=== PATIENT | male | born 1985 | race African-American/Black ===

== ENCOUNTER 2017-08-31 03:00 | Emergency (ER) | payer SELFPAY ==
[2017-08-31 03:57] LABS: #Basophils 0.1 thou/uL (0.0-0.2); #Eosinphils 0.2 thou/uL (0.0-0.7); #Lymphocytes 2.7 thou/uL (1.20-3.40); #Monocytes 0.7 thou/uL (0.11-0.59); #Neutrophils 4.7 thou/uL (1.40-6.50); %Basophils 1.1 % (0.0-1.0); %Eosinophils 2.1 % (0.0-10.0); %Lymphocytes 32.3 % (21.0-51.0); %Monocytes 8.1 % (0.0-10.0); Hematocrit 42.5 % (42.0-52.0); Mean Platelet Volume 8.1 fL (7.4-10.4); Red Blood Cell (RBC) Count 4.78 mill/uL (4.70-6.10); White Blood Cell (WBC) Count 8.3 thou/uL (4.8-10.8)
[2017-08-31 04:15] LABS: ALT (SGPT) 12 U/L (8-55); AST (SGOT) 13 U/L (5-34); Alkaline Phosphatase 68 U/L (40-150); Anion Gap 10 mmol/L (10-20); BUN (Urea Nitrogen) 13 mg/dL (8.9-20.6); Bilirubin, Total 0.4 mg/dL (0.2-1.2); Calc. Creatinine Clearance 0 mL/min (70-130); Carbon Dioxide 25 mmol/L (22-29); Chloride 109 mmol/L (98-107); Estimated GFR-MDRD Greater than 90; Globulin 2.7 g/dL (2.4-3.5); Protein, Total 6.7 g/dL (6.0-8.3)
[2017-08-31 04:16] LABS: Acetaminophen Less than 6.0 mcg/mL (10.0-30.0); CK (CPK) 129 U/L (30-200); Salicylate Less than 8.0 mg/dL (15.0-30.0)
[2017-08-31 05:08] LABS: Bilirubin Negative (Negative); Blood, Urine Negative (Negative); Glucose, Urine (Dipstick) Negative (Negative); Ketone, Urine Negative (Negative); Nitrite Negative (Negative); Protein, Urine (Dipstick) Negative (Neg-Trace)
[2017-08-31 05:32] LABS: Amphetamine Not Detected (NotDetected); Methadone Not Detected (NotDetected); Methamphetamine Not Detected (NotDetected)
[2017-09-06] MEDS ORDERED: Clotrimazole 1 % Cream 30 GM TUBE TOP SCH (09:00)
== END 2017-09-05 23:00 ==
LOC: ERS 03:00
DX: F20.9 Schizophrenia, unspecified (principal); F16.10 Hallucinogen abuse, uncomplicated; F17.210 Nicotine dependence, cigarettes, uncomplicated
CPT/HCPCS: 36415; 80053; 80306; 80307; 81003; 82550; 84443; 85025; 93005

== ENCOUNTER 2017-10-24 19:10 | Emergency (ER) | payer SELFPAY ==
[2017-10-24 20:33] LABS: Bilirubin Negative (Negative); Blood, Urine Negative (Negative); Glucose, Urine (Dipstick) Negative (Negative); Ketone, Urine Trace mg/dL (Negative); Nitrite Negative (Negative); Protein, Urine (Dipstick) Negative (Neg-Trace)
[2017-10-24] MEDS ORDERED: Azithromycin 250 MG TAB ONE (21:41)
[2017-10-24] MEDS ORDERED: cefTRIAXone\\ROCEPHIN 250 MG VIAL ONE (21:41)
[2017-10-24] MEDS ORDERED: Lidocaine 1% PF 5 ML VIAL ONE (21:41)
== END 2017-10-24 21:39 | disposition home or self-care (01) ==
LOC: ERS 19:10
DX: N34.1 Nonspecific urethritis (principal); F32.9 Major depressive disorder, single episode, unspecified; F20.9 Schizophrenia, unspecified; F17.210 Nicotine dependence, cigarettes, uncomplicated; Z79.899 Other long term (current) drug therapy
CPT/HCPCS: 81003; 87491; 87591; 96372; J0696; J2001

== ENCOUNTER 2017-12-08 19:23 | Emergency (ER) | payer SELFPAY ==
[2017-12-08 20:20] LABS: Bilirubin Negative (Negative); Blood, Urine Negative (Negative); Clarity CLEAR (Clear); Glucose, Urine (Dipstick) Negative (Negative); Leukocyte Negative (Negative); Nitrite Negative (Negative); Protein, Urine (Dipstick) Negative (Neg-Trace); Specific Gravity, Urine 1.027 (1.002-1.036)
[2017-12-08] MEDS ORDERED: cefTRIAXone\\ROCEPHIN 250 MG VIAL ONE (20:57)
[2017-12-08] MEDS ORDERED: Lidocaine 1% PF 5 ML VIAL ONE (20:57)
[2017-12-08] MEDS ORDERED: Azithromycin 250 MG TAB ONE (20:57)
== END 2017-12-08 21:25 | disposition home or self-care (01) ==
LOC: ERS 19:23
DX: N34.2 Other urethritis (principal); F32.9 Major depressive disorder, single episode, unspecified; F20.9 Schizophrenia, unspecified; F17.210 Nicotine dependence, cigarettes, uncomplicated
CPT/HCPCS: 81003; 96372; J0696; J2001

== ENCOUNTER 2018-02-09 00:42 | Emergency (ER) | payer SELFPAY ==
[2018-02-09 01:25] LABS: Bilirubin Negative (Negative); Blood, Urine Negative (Negative); Clarity CLEAR (Clear); Glucose, Urine (Dipstick) Negative (Negative); Leukocyte Negative (Negative); Nitrite Negative (Negative); Protein, Urine (Dipstick) Negative (Neg-Trace); Specific Gravity, Urine 1.025 (1.002-1.036); pH, Urine 6.5 (5.0-9.0)
== END 2018-02-09 02:00 | disposition home or self-care (01) ==
LOC: ERS 00:42
DX: N48.89 Other specified disorders of penis (principal); F32.9 Major depressive disorder, single episode, unspecified; F20.9 Schizophrenia, unspecified; F17.210 Nicotine dependence, cigarettes, uncomplicated
CPT/HCPCS: 81003; 99283

== ENCOUNTER 2018-04-17 23:13 | Emergency (ER) | payer SELFPAY ==
[2018-04-17 23:34] LABS: Bilirubin Negative (Negative); Blood, Urine Negative (Negative); Clarity CLEAR (Clear); Glucose, Urine (Dipstick) Negative (Negative); Leukocyte Negative (Negative); Nitrite Negative (Negative); Protein, Urine (Dipstick) Negative (Neg-Trace)
[2018-04-17] MEDS ORDERED: Azithromycin 250 MG TAB ONE (23:51)
[2018-04-17] MEDS ORDERED: Lidocaine 1% PF 5 ML VIAL ONE (23:51)
[2018-04-17] MEDS ORDERED: cefTRIAXone\\ROCEPHIN 250 MG VIAL ONE (23:51)
[2018-04-20 12:26] LABS: Chlamydia by PCR Not Detected (NotDetected); GC by PCR Not Detected (NotDetected)
== END 2018-04-18 00:17 | disposition home or self-care (01) ==
LOC: ERS 23:13
DX: R30.0 Dysuria (principal); Z11.3 Encounter for screening for infections with a predominantly sexual mode of transmission; F32.9 Major depressive disorder, single episode, unspecified; F20.9 Schizophrenia, unspecified; F17.210 Nicotine dependence, cigarettes, uncomplicated
CPT/HCPCS: 81003; 87491; 87591; 96372; J0696; J2001

== ENCOUNTER 2018-05-21 02:35 | Emergency (ER) | payer SELFPAY ==
[2018-05-21 03:28] LABS: #Basophils 0.1 thou/uL (0.0-0.2); #Eosinphils 0.1 thou/uL (0.0-0.7); #Lymphocytes 2.8 thou/uL (1.20-3.40); #Monocytes 0.7 thou/uL (0.11-0.59); #Neutrophils 6.1 thou/uL (1.40-6.50); %Basophils 0.8 % (0.0-1.0); %Lymphocytes 28.4 % (21.0-51.0); %Monocytes 7.6 % (0.0-10.0); %Neutrophils 62.2 % (42.0-75.0); Hemoglobin 14.2 g/dL (14.0-18.0); Mean Corpuscular HGB CONC 32.4 g/dL (32.0-36.0); Mean Corpuscular Hemoglobin 27.9 pg (27.0-31.0); Mean Platelet Volume 8.1 fL (7.4-10.4); Platelet Count 180 thou/uL (130-400); RBC Distribution Width 12.4 % (11.5-14.5); Red Blood Cell (RBC) Count 5.09 mill/uL (4.70-6.10); White Blood Cell (WBC) Count 9.8 thou/uL (4.8-10.8)
[2018-05-21] MEDS ORDERED: Ketorolac Tromethamine 30 MG/ML VIAL ONE (03:37)
[2018-05-21 03:42] LABS: CKMB 0.3 ng/mL (0-6.6); Troponin I Less than 0.010 ng/mL (< 0.028)
[2018-05-21 04:05] LABS: Albumin 4.5 g/dL (3.5-5.0)
[2018-05-21 04:06] LABS: Chloride 108 mmol/L (98-107); Sodium 139 mmol/L (136-145)
[2018-05-21 04:07] LABS: Calcium 9.3 mg/dL (7.8-10.44); Glucose 106 mg/dL (70-105)
[2018-05-21 04:08] LABS: Globulin 2.4 g/dL (2.4-3.5); Protein, Total 6.9 g/dL (6.0-8.3)
[2018-05-21 04:09] LABS: Anion Gap 12 mmol/L (10-20); Bilirubin, Total 0.5 mg/dL (0.2-1.2); Carbon Dioxide 23 mmol/L (22-29)
[2018-05-21 04:10] LABS: Alkaline Phosphatase 54 U/L (40-150)
[2018-05-21 04:11] LABS: Calc. Creatinine Clearance 0 mL/min (70-130); Estimated GFR-MDRD Greater than 90
[2018-05-21 04:12] LABS: BUN (Urea Nitrogen) 13 mg/dL (8.9-20.6)
[2018-05-21 04:13] LABS: ALT (SGPT) 17 U/L (8-55); AST (SGOT) 13 U/L (5-34)
[2018-05-21] MEDS ORDERED: Mag-Al 1200 mg/1200 mg/30 ML UDCUP ONE (04:18)
[2018-05-21] MEDS ORDERED: Lidocaine Viscous Sol 2% 15 ml UD Cup ONE (04:18)
[2018-05-21 05:09] LABS: Bilirubin Negative (Negative); Blood, Urine Negative (Negative); Clarity CLEAR (Clear); Glucose, Urine (Dipstick) Negative (Negative); Leukocyte Negative (Negative); Nitrite Negative (Negative); Protein, Urine (Dipstick) Trace mg/dL (Neg-Trace); Specific Gravity, Urine 1.035 (1.002-1.036)
[2018-05-21 05:19] LABS: Amphetamine Not Detected (NotDetected); Barbiturates Screen Not Detected (NotDetected); Benzodiazepine Screen Not Detected (NotDetected); Cocaine Metabolite Screen Not Detected (NotDetected); Medtox Control Line Valid? VALID (VALID); Medtox Reader # READER 1; Methadone Not Detected (NotDetected); Methamphetamine Not Detected (NotDetected); Opiate Screen Not Detected (NotDetected); Oxycodone Screen Not Detected (NotDetected); Phencyclidine (PCP) Detected (NotDetected); THC/Cannabinoid Screen Not Detected (NotDetected); Tricyclic Screen Not Detected (NotDetected)
== END 2018-05-21 05:47 | disposition home or self-care (01) ==
LOC: ERS 02:35
DX: R07.89 Other chest pain (principal); F32.9 Major depressive disorder, single episode, unspecified; F20.9 Schizophrenia, unspecified; F17.210 Nicotine dependence, cigarettes, uncomplicated
CPT/HCPCS: 36415; 80053; 80306; 81003; 82553; 84484; 85025; 87086; 93005; 96361; 96374; J1885

== ENCOUNTER 2018-06-22 03:02 | Emergency (ER) | payer SELFPAY | END 2018-06-22 05:36 | disposition home or self-care (01) | LOC: ERS 03:02 | DX: N48.89 Other specified disorders of penis (principal); F17.210 Nicotine dependence, cigarettes, uncomplicated; F32.9 Major depressive disorder, single episode, unspecified | CPT/HCPCS: 99283 ==

== ENCOUNTER 2019-03-12 22:09 | Emergency (ER) | payer SELFPAY ==
[2019-03-12] MEDS ORDERED: Ibuprofen 800 MG TAB ONE (22:49)
[2019-03-12 22:50] LABS: Bilirubin Negative (Negative); Blood, Urine Trace (Negative); Clarity CLEAR (Clear); Glucose, Urine (Dipstick) Negative (Negative); Leukocyte Negative (Negative); Nitrite Negative (Negative); Protein, Urine (Dipstick) Negative (Neg-Trace); Urobilinogen 0.2 mg/dL (0.2-1.0); pH, Urine 5.5 (5.0-9.0)
[2019-03-12 22:53] LABS: Bacteria/HPF None Seen HPF (None Seen); Hyaline Casts/LPF 0-3 HYALINE CAST LPF (0-3 Hyaline); RBC/HPF 0-3 HPF (0-3); Squamous Epithelial None Seen HPF (0-3); WBC/HPF 0-3 HPF (0-3)
[2019-03-12 22:59] LABS: Amphetamine Not Detected (NotDetected); Barbiturates Screen Not Detected (NotDetected); Benzodiazepine Screen Not Detected (NotDetected); Cocaine Metabolite Screen Not Detected (NotDetected); Medtox Control Line Valid? VALID (VALID); Medtox Reader # READER 4; Methadone Not Detected (NotDetected); Methamphetamine Not Detected (NotDetected); Opiate Screen Detected (NotDetected); Oxycodone Screen Not Detected (NotDetected); Phencyclidine (PCP) Detected (NotDetected); THC/Cannabinoid Screen Not Detected (NotDetected); Tricyclic Screen Not Detected (NotDetected)
== END 2019-03-12 22:55 | disposition home or self-care (01) ==
LOC: ERS 22:09
DX: M54.9 Dorsalgia, unspecified (principal); F32.9 Major depressive disorder, single episode, unspecified; F20.9 Schizophrenia, unspecified; F17.210 Nicotine dependence, cigarettes, uncomplicated
CPT/HCPCS: 80306; 81003; 81015; 99281

== ENCOUNTER 2019-03-13 10:23 | Emergency (ER) | payer SELFPAY ==
[2019-03-13 11:01] LABS: #Eosinphils 0.1 thou/uL (0.0-0.7); #Lymphocytes 1.3 thou/uL (1.20-3.40); #Monocytes 0.7 thou/uL (0.11-0.59); %Basophils 0.5 % (0.0-1.0); %Lymphocytes 16.3 % (21.0-51.0); %Monocytes 8.7 % (0.0-10.0); %Neutrophils 73.6 % (42.0-75.0); Hemoglobin 14.8 g/dL (14.0-18.0); Mean Corpuscular HGB CONC 31.7 g/dL (32.0-36.0); Mean Corpuscular Hemoglobin 26.8 pg (27.0-31.0); Mean Corpuscular Volume 84.4 fL (78.0-98.0); Mean Platelet Volume 8.4 fL (7.4-10.4); Platelet Count 224 thou/uL (130-400); RBC Distribution Width 12.6 % (11.5-14.5); Red Blood Cell (RBC) Count 5.51 mill/uL (4.70-6.10); White Blood Cell (WBC) Count 8.2 thou/uL (4.8-10.8)
[2019-03-13 11:26] LABS: Anion Gap 13 mmol/L (10-20); BUN (Urea Nitrogen) 23 mg/dL (8.9-20.6); Calc. Creatinine Clearance 0 mL/min (70-130); Calcium 9.9 mg/dL (7.8-10.44); Carbon Dioxide 27 mmol/L (22-29); Chloride 99 mmol/L (98-107); Estimated GFR-MDRD Greater than 90; Glucose 146 mg/dL (70-105); Lipase 11 U/L (8-78); Potassium 3.6 mmol/L (3.5-5.1); Sodium 135 mmol/L (136-145)
[2019-03-13] MEDS ORDERED: Ondansetron ODT 4 MG TAB ONE (12:09)
== END 2019-03-13 12:17 | disposition home or self-care (01) ==
LOC: ERS 10:23
DX: R11.2 Nausea with vomiting, unspecified (principal); F41.9 Anxiety disorder, unspecified; F32.9 Major depressive disorder, single episode, unspecified; F20.9 Schizophrenia, unspecified; F17.210 Nicotine dependence, cigarettes, uncomplicated
CPT/HCPCS: 36415; 80048; 83690; 85025; 99284; Q0162

== ENCOUNTER 2019-04-11 19:37 | Emergency (ER) | payer SELFPAY ==
[2019-04-11] MEDS ORDERED: Ketorolac Tromethamine 30 MG/ML VIAL ONE (19:51)
[2019-04-11 20:35] LABS: Bilirubin Small (Negative); Blood, Urine Negative (Negative); Clarity CLEAR (Clear); Glucose, Urine (Dipstick) Negative (Negative); Leukocyte Negative (Negative); Nitrite Negative (Negative); Protein, Urine (Dipstick) Negative (Neg-Trace); Specific Gravity, Urine 1.034 (1.002-1.036)
== END 2019-04-11 21:46 | disposition home or self-care (01) ==
LOC: ERS 19:37
DX: M54.5 Low back pain (principal); F41.9 Anxiety disorder, unspecified; F32.9 Major depressive disorder, single episode, unspecified; F20.9 Schizophrenia, unspecified; F17.210 Nicotine dependence, cigarettes, uncomplicated
CPT/HCPCS: 81003; 96372; J1885

== ENCOUNTER 2019-04-18 19:06 | Emergency (ER) | payer SELFPAY ==
--- NOTE | 2019-04-18 19:37 | RAD ---
RADIOGRAPH CHEST 1 VIEW: DATE: 04/18/2019 HISTORY: 33-year-old male with palpitations and chest pain FINDINGS: There are no airspace densities, pulmonary edema, pneumothorax, or cardiomegaly. The lateral costophr enic angles are sharp. IMPRESSION: No acute cardiopulmonary findings.
[2019-04-18 19:42] LABS: #Basophils 0.1 thou/uL (0.0-0.2); #Lymphocytes 1.3 thou/uL (1.20-3.40); #Monocytes 0.7 thou/uL (0.11-0.59); #Neutrophils 9.6 thou/uL (1.40-6.50); %Basophils 0.6 % (0.0-1.0); %Eosinophils 0.4 % (0.0-10.0); %Lymphocytes 11.1 % (21.0-51.0); %Monocytes 5.9 % (0.0-10.0); Hemoglobin 13.9 g/dL (14.0-18.0); Mean Corpuscular HGB CONC 32.3 g/dL (32.0-36.0); Mean Corpuscular Hemoglobin 28.1 pg (27.0-31.0); Mean Corpuscular Volume 86.9 fL (78.0-98.0); Mean Platelet Volume 8.4 fL (7.4-10.4); Platelet Count 216 thou/uL (130-400); RBC Distribution Width 12.6 % (11.5-14.5); Red Blood Cell (RBC) Count 4.97 mill/uL (4.70-6.10); White Blood Cell (WBC) Count 11.7 thou/uL (4.8-10.8)
[2019-04-18 20:05] LABS: ALT (SGPT) 20 U/L (8-55); AST (SGOT) 23 U/L (5-34); Albumin 4.7 g/dL (3.5-5.0); Alkaline Phosphatase 59 U/L (40-150); Anion Gap 16 mmol/L (10-20); BUN (Urea Nitrogen) 19 mg/dL (8.9-20.6); Calc. Creatinine Clearance 0 mL/min (70-130); Calcium 9.5 mg/dL (7.8-10.44); Carbon Dioxide 24 mmol/L (22-29); Chloride 105 mmol/L (98-107); Estimated GFR-MDRD 68; Globulin 2.8 g/dL (2.4-3.5); Glucose 125 mg/dL (70-105); Potassium 3.3 mmol/L (3.5-5.1); Protein, Total 7.5 g/dL (6.0-8.3); Sodium 142 mmol/L (136-145)
[2019-04-18 22:39] LABS: Troponin I Less than 0.010 ng/mL (< 0.028)
== END 2019-04-18 23:30 | disposition home or self-care (01) ==
LOC: ERS 19:06
DX: R07.9 Chest pain, unspecified (principal); R00.2 Palpitations; F41.9 Anxiety disorder, unspecified; F32.9 Major depressive disorder, single episode, unspecified; F17.210 Nicotine dependence, cigarettes, uncomplicated
CPT/HCPCS: 36415; 71045; 80053; 84484; 85025; 85379; 93005; 96360; 96361

== ENCOUNTER 2019-05-01 16:39 | Emergency (ER) | payer SELFPAY ==
[2019-05-01 17:46] LABS: #Basophils 0.1 thou/uL (0.0-0.2); #Eosinphils 0.1 thou/uL (0.0-0.7); #Lymphocytes 2.1 thou/uL (1.20-3.40); #Monocytes 0.9 thou/uL (0.11-0.59); #Neutrophils 8.5 thou/uL (1.40-6.50); %Basophils 1.1 % (0.0-1.0); %Eosinophils 1.2 % (0.0-10.0); %Lymphocytes 17.8 % (21.0-51.0); %Monocytes 7.9 % (0.0-10.0); Hemoglobin 16.3 g/dL (14.0-18.0); Mean Corpuscular HGB CONC 32.6 g/dL (32.0-36.0); Mean Corpuscular Hemoglobin 27.9 pg (27.0-31.0); Mean Corpuscular Volume 85.4 fL (78.0-98.0); Mean Platelet Volume 8.8 fL (7.4-10.4); Platelet Count 215 thou/uL (130-400); RBC Distribution Width 12.7 % (11.5-14.5); Red Blood Cell (RBC) Count 5.84 mill/uL (4.70-6.10); White Blood Cell (WBC) Count 11.8 thou/uL (4.8-10.8)
[2019-05-01 18:08] LABS: ALT (SGPT) 34 U/L (8-55); AST (SGOT) 29 U/L (5-34); Albumin 5.5 g/dL (3.5-5.0); Alkaline Phosphatase 72 U/L (40-150); Anion Gap 21 mmol/L (10-20); BUN (Urea Nitrogen) 33 mg/dL (8.9-20.6); Bilirubin, Total 0.5 mg/dL (0.2-1.2); CK (CPK) 662 U/L (30-200); Calc. Creatinine Clearance 0 mL/min (70-130); Calcium 10.5 mg/dL (7.8-10.44); Carbon Dioxide 22 mmol/L (22-29); Chloride 97 mmol/L (98-107); Estimated GFR-MDRD 48; Globulin 3.1 g/dL (2.4-3.5); Glucose 96 mg/dL (70-105); Lipase 19 U/L (8-78); Potassium 3.6 mmol/L (3.5-5.1); Protein, Total 8.6 g/dL (6.0-8.3); Sodium 136 mmol/L (136-145)
== END 2019-05-01 19:40 | disposition home or self-care (01) ==
LOC: ERS 16:39
DX: E86.0 Dehydration (principal); R25.2 Cramp and spasm; F20.9 Schizophrenia, unspecified; F41.9 Anxiety disorder, unspecified; F17.210 Nicotine dependence, cigarettes, uncomplicated
CPT/HCPCS: 36415; 80053; 82550; 83690; 84484; 85025; 93005; 96360; 96361

== ENCOUNTER 2019-05-20 20:22 | Emergency (ER) | payer SELFPAY ==
[2019-05-20 21:24] LABS: #Basophils 0.1 thou/uL (0.0-0.2); #Eosinphils 0.2 thou/uL (0.0-0.7); #Lymphocytes 2.2 thou/uL (1.20-3.40); #Monocytes 0.8 thou/uL (0.11-0.59); #Neutrophils 6.6 thou/uL (1.40-6.50); %Basophils 0.7 % (0.0-1.0); %Eosinophils 2.3 % (0.0-10.0); %Lymphocytes 22.1 % (21.0-51.0); %Monocytes 7.8 % (0.0-10.0); %Neutrophils 67.2 % (42.0-75.0); Hemoglobin 13.5 g/dL (14.0-18.0); Mean Corpuscular HGB CONC 31.9 g/dL (32.0-36.0); Mean Corpuscular Hemoglobin 27.7 pg (27.0-31.0); Mean Corpuscular Volume 86.8 fL (78.0-98.0); Mean Platelet Volume 8.6 fL (7.4-10.4); Platelet Count 208 thou/uL (130-400); RBC Distribution Width 12.7 % (11.5-14.5); Red Blood Cell (RBC) Count 4.87 mill/uL (4.70-6.10); White Blood Cell (WBC) Count 9.8 thou/uL (4.8-10.8)
[2019-05-20] MEDS ORDERED: Azithromycin 250 MG TAB ONE (21:39)
[2019-05-20] MEDS ORDERED: Ketorolac Tromethamine 30 MG/ML VIAL ONE (21:39)
[2019-05-20] MEDS ORDERED: cefTRIAXone\\ROCEPHIN 250 MG VIAL ONE (21:39)
[2019-05-20] MEDS ORDERED: Lidocaine 1% PF 5 ML VIAL ONE (21:40)
[2019-05-20 21:55] LABS: ALT (SGPT) 19 U/L (8-55); AST (SGOT) 23 U/L (5-34); Albumin 4.3 g/dL (3.5-5.0); Alkaline Phosphatase 61 U/L (40-150); Anion Gap 14 mmol/L (10-20); BUN (Urea Nitrogen) 17 mg/dL (8.9-20.6); Bilirubin, Total 0.4 mg/dL (0.2-1.2); Calc. Creatinine Clearance 0 mL/min (70-130); Calcium 8.8 mg/dL (7.8-10.44); Carbon Dioxide 22 mmol/L (22-29); Chloride 107 mmol/L (98-107); Estimated GFR-MDRD Greater than 90; Glucose 102 mg/dL (70-105); Potassium 4.4 mmol/L (3.5-5.1); Protein, Total 7.3 g/dL (6.0-8.3); Sodium 139 mmol/L (136-145)
[2019-05-20 22:06] LABS: Bilirubin Small (Negative); Blood, Urine Negative (Negative); Clarity Clear (Clear); Glucose, Urine (Dipstick) Negative (Negative); Leukocyte Negative (Negative); Nitrite Negative (Negative); Protein, Urine (Dipstick) Trace mg/dL (Neg-Trace)
[2019-05-22 00:55] LABS: Chlam.trachomatis by PCR,Urine Not Detected (NotDetected)
== END 2019-05-20 22:34 | disposition home or self-care (01) ==
LOC: ERS 20:22
DX: R30.0 Dysuria (principal); M53.3 Sacrococcygeal disorders, not elsewhere classified; F32.9 Major depressive disorder, single episode, unspecified; F41.9 Anxiety disorder, unspecified; F20.9 Schizophrenia, unspecified; F17.210 Nicotine dependence, cigarettes, uncomplicated
CPT/HCPCS: 80053; 81003; 85025; 87491; 87591; 96372; 96374; J0696; J1885; J2001

== ENCOUNTER 2019-06-05 03:05 | Emergency (ER) | payer SELFPAY ==
[2019-06-05 04:04] LABS: Bilirubin Negative (Negative); Blood, Urine Negative (Negative); Clarity Clear (Clear); Glucose, Urine (Dipstick) Normal (Negative); Leukocyte Negative Leu/uL (Negative); Nitrite Negative (Negative); Protein, Urine (Dipstick) Negative (Neg-Trace); Urobilinogen Normal mg/dL (Less than 2)
[2019-06-05 04:13] LABS: #Basophils 0.1 thou/uL (0.0-0.2); #Eosinphils 0.1 thou/uL (0.0-0.7); #Lymphocytes 1.9 thou/uL (1.20-3.40); #Monocytes 0.9 thou/uL (0.11-0.59); #Neutrophils 8.5 thou/uL (1.40-6.50); %Basophils 0.7 % (0.0-1.0); %Eosinophils 0.9 % (0.0-10.0); %Lymphocytes 16.5 % (21.0-51.0); %Monocytes 7.9 % (0.0-10.0); Hemoglobin 14.1 g/dL (14.0-18.0); Mean Corpuscular HGB CONC 32.9 g/dL (32.0-36.0); Mean Corpuscular Hemoglobin 28.4 pg (27.0-31.0); Mean Corpuscular Volume 86.2 fL (78.0-98.0); Mean Platelet Volume 8.4 fL (7.4-10.4); Platelet Count 192 thou/uL (130-400); RBC Distribution Width 12.9 % (11.5-14.5); Red Blood Cell (RBC) Count 4.98 mill/uL (4.70-6.10); White Blood Cell (WBC) Count 11.5 thou/uL (4.8-10.8)
[2019-06-05 05:34] LABS: Albumin 4.4 g/dL (3.5-5.0)
[2019-06-05 05:36] LABS: Calcium 9.6 mg/dL (7.8-10.44); Chloride 102 mmol/L (98-107); Potassium 3.6 mmol/L (3.5-5.1); Sodium 137 mmol/L (136-145)
[2019-06-05 05:37] LABS: Globulin 2.6 g/dL (2.4-3.5); Glucose 88 mg/dL (70-105)
[2019-06-05 05:38] LABS: Anion Gap 12 mmol/L (10-20); Carbon Dioxide 27 mmol/L (22-29)
[2019-06-05 05:39] LABS: Bilirubin, Total 0.6 mg/dL (0.2-1.2)
[2019-06-05 05:40] LABS: Alkaline Phosphatase 47 U/L (40-150); Calc. Creatinine Clearance 0 mL/min (70-130); Estimated GFR-MDRD Greater than 90
[2019-06-05 05:41] LABS: BUN (Urea Nitrogen) 8 mg/dL (8.9-20.6)
[2019-06-05 05:42] LABS: AST (SGOT) 19 U/L (5-34)
[2019-06-05 05:43] LABS: ALT (SGPT) 17 U/L (8-55); Lipase 16 U/L (8-78)
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
== END 2019-06-05 07:35 | disposition home or self-care (01) ==
LOC: ERS 03:05
DX: M54.9 Dorsalgia, unspecified (principal); F20.9 Schizophrenia, unspecified; F41.9 Anxiety disorder, unspecified; F32.9 Major depressive disorder, single episode, unspecified; F17.210 Nicotine dependence, cigarettes, uncomplicated
CPT/HCPCS: 36415; 70450; 71260; 72125; 74177; 80053; 81003; 83690; 85025

== ENCOUNTER 2019-07-01 21:28 | Emergency (ER) | payer SELFPAY ==
[2019-07-01] MEDS ORDERED: Ibuprofen 800 MG TAB ONE (22:24)
[2019-07-01 22:41] LABS: Bacteria/HPF None Seen HPF (None Seen); Bilirubin Negative (Negative); Blood, Urine Trace (Negative); Clarity Clear (Clear); Glucose, Urine (Dipstick) Normal (Negative); Leukocyte Negative Leu/uL (Negative); Nitrite Negative (Negative); Protein, Urine (Dipstick) 10 mg/dL (Neg-Trace); RBC/HPF 0-3 HPF (0-3); Squamous Epithelial 0-3 HPF (0-3); Urobilinogen Normal mg/dL (Less than 2); WBC/HPF 0-3 HPF (0-3)
== END 2019-07-01 23:10 | disposition home or self-care (01) ==
LOC: ERS 21:28
DX: A63.0 Anogenital (venereal) warts (principal); Z71.6 Tobacco abuse counseling; F41.9 Anxiety disorder, unspecified; F32.9 Major depressive disorder, single episode, unspecified; F20.9 Schizophrenia, unspecified; F17.210 Nicotine dependence, cigarettes, uncomplicated
CPT/HCPCS: 81003; 81015; 99406

== ENCOUNTER 2019-08-13 11:10 | Inpatient (IN) | payer SELFPAY ==
[2019-08-13 11:54] LABS: #Basophils 0.1 thou/uL (0.0-0.2); #Eosinphils 0.1 thou/uL (0.0-0.7); #Lymphocytes 1.7 thou/uL (1.20-3.40); #Neutrophils 9.5 thou/uL (1.40-6.50); %Basophils 0.9 % (0.0-1.0); %Eosinophils 0.7 % (0.0-10.0); %Lymphocytes 13.4 % (21.0-51.0); %Monocytes 8.2 % (0.0-10.0); %Neutrophils 76.8 % (42.0-75.0); Hemoglobin 16.2 g/dL (14.0-18.0); Mean Corpuscular HGB CONC 33.2 g/dL (32.0-36.0); Mean Corpuscular Hemoglobin 27.6 pg (27.0-31.0); Mean Platelet Volume 8.3 fL (7.4-10.4); Platelet Count 215 thou/uL (130-400); RBC Distribution Width 12.6 % (11.5-14.5); Red Blood Cell (RBC) Count 5.89 mill/uL (4.70-6.10); White Blood Cell (WBC) Count 12.3 thou/uL (4.8-10.8)
[2019-08-13 12:25] LABS: ALT (SGPT) 25 U/L (8-55); AST (SGOT) 23 U/L (5-34); Albumin 5.7 g/dL (3.5-5.0); Alkaline Phosphatase 71 U/L (40-110); Anion Gap 20 mmol/L (10-20); BUN (Urea Nitrogen) 46 mg/dL (8.9-20.6); Bilirubin, Total 0.8 mg/dL (0.2-1.2); CK (CPK) 1107 U/L (30-200); Calc. Creatinine Clearance 0 mL/min (70-130); Calcium 10.1 mg/dL (7.8-10.44); Carbon Dioxide 21 mmol/L (22-29); Chloride 98 mmol/L (98-107); Estimated GFR-MDRD 33; Globulin 3.5 g/dL (2.4-3.5); Glucose 98 mg/dL (70-105); Lipase 15 U/L (8-78); Potassium 3.9 mmol/L (3.5-5.1); Protein, Total 9.2 g/dL (6.0-8.3); Sodium 135 mmol/L (136-145)
--- NOTE | 2019-08-13 13:25 | RAD ---
PORTABLE CHEST: Date: 08/13/19 PROVIDED CLINICAL HISTORY: Chest pain. FINDINGS: Comparison with 04/18/19. Cardiac and mediastinal silhouette is within normal limits. No focal consolidation, pleural fluid, or pneumothorax apparent. IMPRESSION: No evidence for an acute cardiopulmonary process. POS: TPC
[2019-08-13 13:57] LABS: Bilirubin Negative (Negative); Blood, Urine Trace (Negative); Clarity Clear (Clear); Glucose, Urine (Dipstick) Normal (Negative); Leukocyte Negative Leu/uL (Negative); Nitrite Negative (Negative); Protein, Urine (Dipstick) 30 mg/dL (Neg-Trace); RBC/HPF 0-3 HPF (0-3); Urobilinogen Normal mg/dL (Less than 2)
[2019-08-13 13:59] LABS: Amphetamine Not Detected (NotDetected); Bacteria/HPF 1+ HPF (None Seen); Barbiturates Screen Not Detected (NotDetected); Benzodiazepine Screen Not Detected (NotDetected); Cocaine Metabolite Screen Not Detected (NotDetected); Medtox Control Line Valid? VALID (VALID); Medtox Reader # READER 4; Methadone Not Detected (NotDetected); Methamphetamine Not Detected (NotDetected); Opiate Screen Not Detected (NotDetected); Oxycodone Screen Not Detected (NotDetected); Phencyclidine (PCP) Detected (NotDetected); THC/Cannabinoid Screen Not Detected (NotDetected); Tricyclic Screen Not Detected (NotDetected)
[2019-08-13] MEDS ORDERED: Ondansetron PF 4 MG/2 ML Vial IVP PRN (15:53)
[2019-08-13] MEDS ORDERED: Acetaminophen 325 MG TAB PO PRN (15:53)
[2019-08-13] MEDS ORDERED: Ondansetron ODT 4 MG TAB SL PRN (15:53)
[2019-08-13] MEDS: Sodium Chloride 0.9% 1,000 ML IV SCH (16:29)
[2019-08-13 18:22] LABS: Troponin I Less than 0.010 ng/mL (< 0.028)
--- NOTE | 2019-08-13 18:33 | HP ---
PRIMARY CARE PHYSICIAN: [facility]. CHIEF COMPLAINT: Chest pain. HISTORY OF PRESENT ILLNESS: Mr. Parks is a 33-year-old man with a history of occasional headaches, who had presented to the ED earlier today after he had experienced some chest pain and overall muscle soreness and nausea earlier today at work. 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 He states that he also reported some nausea and lightheadedness, but denied any palpitations, shortness of breath, fever, chills, or abdominal pain. His lab work did show a CPK elevated at 1100 with a BUN of 46 and creatinine of 2.7. His drug screen has detected PCP. He was started on IV normal saline at 150 an hour and after about 30 to 45 minutes, the patient's symptoms slowly improved. His blood pressure and other vital signs remained stable, and he had no further complaints at this time. REVIEW OF SYSTEMS: All other systems reviewed and found to be negative unless mentioned in the HPI. PAST MEDICAL HISTORY: Headaches. PAST SURGICAL HISTORY: None. PSYCHIATRIC HISTORY: Includes anxiety and depression, schizophrenia. SOCIAL HISTORY: The patient states that he drinks socially roughly once a month. He also states that he has a history of abusing marijuana and PCP, and he states he smokes about a half pack to a pack of cigarettes per day. KNOWN ALLERGIES: No known drug allergies. CURRENT HOME MEDICATIONS: None. PHYSICAL EXAMINATION: VITAL SIGNS: BP 124/79, pulse 82, respirations 17, temperature 98.2, and O2 saturation 99% on room air. GENERAL: The patient is awake, alert, and oriented x3. He is currently lying comfortably in bed and in no acute distress. HEENT: Atraumatic and normocephalic. Pupils are round and reactive to light. Extraocular muscles intact. Moist mucous membranes noted. CARDIOVASCULAR: Positive S1 and S2. Regular rate and rhythm. No murmur auscultated. RESPIRATORY: Clear to auscultation bilaterally. No wheezes, rales, or rhonchi. ABDOMEN: Soft, nontender. Bowel sounds present. EXTREMITIES: Moves all extremities equal. Pedal and radial pulses 2+ bilaterally. No edema noted. NEUROLOGIC: Cranial nerves 2 through 12 are grossly intact. No focal deficits noted. Speech intact and normal. Gait not assessed. SKIN: Warm, dry, and intact. No rashes. No ulceration noted. PSYCHIATRIC: Good mood and affect. LABORATORY DATA: WBC 12.3, RBC 5.89, hemoglobin 16.2, hematocrit 48.8, platelets 215. Sodium 135, potassium 3.9, anion gap 20, BUN 46, creatinine 2.70, estimated GFR 33. CPK 1107, troponin less than 0.010 x2. Lipase 15. Urine drug screen detected PCP, otherwise unremarkable. DIAGNOSTIC IMAGING: Portable chest x-ray showed no evidence of acute cardiopulmonary process. ASSESSMENT AND PLAN: 1. Rhabdomyolysis, likely secondary to PCP and/or working out in the hot sun all day at his work, he will be placed on IV fluid hydration at 150 an hour. We will recheck CPK and BMP in the morning. 2. Acute kidney injury, likely secondary to above. As above, continue on IV fluid hydration and recheck BMP in the morning. 3. Deep venous thrombosis and gastrointestinal prophylaxis. 4. Code status, full code. DISPOSITION: Pending further workup and clinical findings. Job ID: [id number]
[2019-08-13] MEDS ORDERED: FLU VACC QS2019-20(6MOS UP)/PF 60 MCG/0.5 ML SYRINGE IM ONE (19:00)
[2019-08-14] MEDS: Sodium Chloride 0.9% 1,000 ML IV SCH ×4 (00:43→12:53)
[2019-08-14] MEDS ORDERED: Calcium Carbonate 500 MG ChewTAB PO PRN (08:07)
[2019-08-14] MEDS ORDERED: Famotidine 20 MG TAB PO SCH (09:00)
[2019-08-14 10:03] LABS: Anion Gap 9 mmol/L (10-20); BUN (Urea Nitrogen) 18 mg/dL (8.9-20.6); CK (CPK) 634 U/L (30-200); Calc. Creatinine Clearance 123 mL/min (70-130); Calcium 8.4 mg/dL (7.8-10.44); Carbon Dioxide 25 mmol/L (22-29); Chloride 107 mmol/L (98-107); Estimated GFR-MDRD Greater than 90; Glucose 91 mg/dL (70-105); Magnesium 2.3 mg/dL (1.6-2.6); Potassium 3.9 mmol/L (3.5-5.1); Sodium 137 mmol/L (136-145)
[2019-08-14 11:32] VITALS: BMI 29.7
[2019-08-14 11:37] VITALS: BP 121/66; TEMP 98.3
--- NOTE | 2019-08-14 18:47 | DIS ---
DATE OF ADMISSION: 08/13/2019 DATE OF DISCHARGE: 08/14/2019 DISCHARGE DISPOSITION: Home. FOLLOWUP: Follow up with [facility] in [place] after a week. Repeat CK and basic metabolic profile after 1 week is recommended, primary care physician advised to follow. The patient was seen and examined on the day of discharge. Denies any new complaints. No chest pain, shortness of breath, or palpitations reported. Lifestyle modification including drug cessation was emphasized. SIGNIFICANT LABORATORY DATA: Urine drug screen positive for PCP. Creatinine on admission was 2.7, at discharge is 0.98. Sodium 135 on admission and 137 at discharge. CK on admission was 1107, at discharge is 634. Troponin was negative. Chest x-ray was negative for infiltrate. BRIEF HOSPITAL COURSE: The patient is a 33-year-old male, who presented to the hospital with generalized aches and pains along with nonspecific chest discomfort. Please refer to the history and physical for further details. The patient was admitted to the hospital with a diagnosis of acute kidney injury with rhabdomyolysis. He was started on IV fluids. His CK improved to 634 from 1107. His creatinine has normalized to 0.98. Lifestyle modification was emphasized. Urine drug screen was positive for phencyclidine. He was advised to maintain adequate oral intake. He appears stable for discharge. FINAL DIAGNOSES: 1. Acute kidney injury. 2. Dehydration with rhabdomyolysis. 3. Urine drug screen positive for phencyclidine. 4. Hyponatremia. 5. Metabolic acidosis. 6. Leukocytosis, unlikely to be infectious. TIME SPENT WITH PATIENT: Total time coordinating the discharge of this patient was 32 minutes. Job ID: [id number]
--- NOTE | 2019-08-16 14:43 | EKG ---
Test Reason : Blood Pressure : / mmHG Vent. Rate : 082 BPM Atrial Rate : 082 BPM P-R Int : 166 ms QRS Dur : 084 ms QT Int : 348 ms P-R-T Axes : 078 076 075 degrees QTc Int : 406 ms Normal sinus rhythm Early repolarization Normal ECG Confirmed by RACHANA WILLARD DO ([id number]), metropolitan editor BRIDGETTE FELTON ([id number] on 08/16/2019 2:42:14 PM Referred By: Confirmed By:RACHANA WILLARD DO
== END 2019-08-14 15:45 | disposition home or self-care (01) | DRG 683 ==
LOC: ERS 11:10 → 2NO 13:14
PROVIDERS: ADMIT Internal Medicine Nephrology; ATTEND Internal Medicine Nephrology
DX: N17.9 Acute kidney failure, unspecified (principal); M62.82 Rhabdomyolysis; E87.1 Hypo-osmolality and hyponatremia; E87.2 Acidosis; E86.0 Dehydration; D72.829 Elevated white blood cell count, unspecified; F20.9 Schizophrenia, unspecified; F41.9 Anxiety disorder, unspecified; F32.9 Major depressive disorder, single episode, unspecified; F17.210 Nicotine dependence, cigarettes, uncomplicated
CPT/HCPCS: 36415; 71045; 80048; 80053; 80306; 81003; 81015; 82550; 83690; 83735; 84484; 85025; 90471; 90686; 93005; 94760; G0008

== ENCOUNTER 2020-04-02 22:02 | Emergency (ER) | payer SELFPAY ==
[2020-04-02 22:38] LABS: Bilirubin Negative (Negative); Blood, Urine Negative (Negative); Clarity Clear (Clear); Glucose, Urine (Dipstick) Normal (Negative); Leukocyte Negative Leu/uL (Negative); Nitrite Negative (Negative); Protein, Urine (Dipstick) 20 mg/dL (Neg-Trace); Urobilinogen 6 mg/dL (Less than 2)
[2020-04-02] MEDS ORDERED: Cyclobenzaprine 10 MG TAB ONE (22:56)
[2020-04-02] MEDS ORDERED: Naproxen 500 MG TAB ONE (22:56)
== END 2020-04-02 23:28 | disposition home or self-care (01) ==
LOC: ERS 22:02
DX: M79.10 Myalgia, unspecified site (principal); F41.9 Anxiety disorder, unspecified; F32.9 Major depressive disorder, single episode, unspecified; F20.9 Schizophrenia, unspecified; F17.210 Nicotine dependence, cigarettes, uncomplicated
CPT/HCPCS: 81003; 99283

== ENCOUNTER 2020-07-15 22:50 | Emergency (ER) | payer SELFPAY | END 2020-07-16 02:44 | disposition home or self-care (01) | LOC: ERS 22:50 | DX: R41.82 Altered mental status, unspecified (principal); F41.9 Anxiety disorder, unspecified; F32.9 Major depressive disorder, single episode, unspecified; F20.9 Schizophrenia, unspecified; F17.210 Nicotine dependence, cigarettes, uncomplicated | CPT/HCPCS: 93005 ==

== ENCOUNTER 2021-03-14 01:40 | Emergency (ER) | payer SELFPAY ==
[2021-03-14 02:18] LABS: #Basophils 0.1 thou/uL (0.0-0.2); #Lymphocytes 1.4 thou/uL (1.20-3.40); #Monocytes 1.2 thou/uL (0.11-0.59); %Basophils 0.6 % (0.0-1.0); %Eosinophils 0.1 % (0.0-10.0); %Lymphocytes 9.7 % (21.0-51.0); %Monocytes 7.8 % (0.0-10.0); %Neutrophils 81.8 % (42.0-75.0); Hemoglobin 13.5 g/dL (14.0-18.0); Mean Corpuscular HGB CONC 32.7 g/dL (32.0-36.0); Mean Corpuscular Hemoglobin 28.4 pg (27.0-31.0); Mean Corpuscular Volume 86.9 fL (78.0-98.0); Mean Platelet Volume 8.9 fL (7.4-10.4); Platelet Count 195 thou/uL (130-400); RBC Distribution Width 12.9 % (11.5-14.5); Red Blood Cell (RBC) Count 4.73 mill/uL (4.70-6.10); White Blood Cell (WBC) Count 14.7 thou/uL (4.8-10.8)
[2021-03-14 03:10] LABS: ALT (SGPT) 27 U/L (8-55); AST (SGOT) 22 U/L (5-34); Albumin 4.2 g/dL (3.5-5.0); Alkaline Phosphatase 56 U/L (40-110); Anion Gap 13 mmol/L (10-20); BUN (Urea Nitrogen) 10 mg/dL (8.9-20.6); Bilirubin, Total 0.7 mg/dL (0.2-1.2); Calc. Creatinine Clearance 0 mL/min (70-130); Carbon Dioxide 20 mmol/L (22-29); Chloride 108 mmol/L (98-107); Globulin 2.9 g/dL (2.4-3.5); Glucose 111 mg/dL (70-105); Potassium 4.2 mmol/L (3.5-5.1); Protein, Total 7.1 g/dL (6.0-8.3); Sodium 137 mmol/L (136-145)
[2021-03-14 04:13] LABS: Amphetamine Not Detected (NotDetected); Barbiturates Screen Not Detected (NotDetected); Benzodiazepine Screen Not Detected (NotDetected); Cocaine Metabolite Screen Not Detected (NotDetected); Medtox Control Line Valid? VALID (VALID); Medtox Reader # READER 1; Methadone Not Detected (NotDetected); Methamphetamine Not Detected (NotDetected); Opiate Screen Not Detected (NotDetected); Oxycodone Screen Not Detected (NotDetected); Phencyclidine (PCP) Detected (NotDetected); THC/Cannabinoid Screen Not Detected (NotDetected); Tricyclic Screen Not Detected (NotDetected)
== END 2021-03-14 03:58 | disposition home or self-care (01) ==
LOC: ERS 01:40
DX: K52.9 Noninfective gastroenteritis and colitis, unspecified (principal); F17.210 Nicotine dependence, cigarettes, uncomplicated
CPT/HCPCS: 80053; 80306; 84484; 85025; 93005

== ENCOUNTER 2021-03-14 11:11 | Emergency (ER) | payer SELFPAY ==
[~2021-03-14 11:11] MED LIST: Iopamidol-370 76% 500 ML 1 ML ONE
[2021-03-14] MEDS ORDERED: Ketorolac Tromethamine 30 MG/ML VIAL ONE (14:39)
[2021-03-14 14:43] LABS: Bacteria/HPF None Seen HPF (None Seen); Bilirubin Negative (Negative); Blood, Urine 2+ (Negative); Clarity Clear (Clear); Glucose, Urine (Dipstick) Normal (Negative); Ketone, Urine 40 mg/dL (Negative); Leukocyte Negative Leu/uL (Negative); Nitrite Negative (Negative); Protein, Urine (Dipstick) 20 mg/dL (Neg-Trace); RBC/HPF 21-50 HPF (0-3); Specific Gravity, Urine 1.032 (1.002-1.036); Squamous Epithelial 0-3 HPF (0-3); WBC/HPF 0-3 HPF (0-3); pH, Urine 6.5 (5.0-9.0)
== END 2021-03-14 16:56 | disposition home or self-care (01) ==
LOC: ERS 11:11
DX: N13.2 Hydronephrosis with renal and ureteral calculous obstruction (principal); F17.210 Nicotine dependence, cigarettes, uncomplicated; Z79.899 Other long term (current) drug therapy
CPT/HCPCS: 74177; 76870; 81003; 81015; 93976; 96374; J1885; Q9967

== ENCOUNTER 2022-05-19 22:35 | Emergency (ER) | payer SELFPAY ==
[2022-05-19] MEDS ORDERED: Ondansetron PF 4 MG/2 ML Vial ONE (23:33)
[2022-05-20] MEDS ORDERED: Ketorolac Tromethamine 30 MG/ML VIAL ONE (00:18)
[2022-05-20 00:45] LABS: SARS-CoV-2 NAA Rapid Test DETECTED (NotDetected)
== END 2022-05-20 00:57 | disposition home or self-care (01) ==
LOC: ERS 22:35
DX: U07.1 COVID-19 (principal); F17.210 Nicotine dependence, cigarettes, uncomplicated
CPT/HCPCS: 96374; 96375; J1885; J2405; U0002

== ENCOUNTER 2022-07-31 18:07 | Emergency (ER) | payer SELFPAY ==
[2022-07-31] MEDS ORDERED: Ketorolac Tromethamine 30 MG/ML VIAL ONE (20:42)
== END 2022-07-31 21:00 | disposition home or self-care (01) ==
LOC: ERS 18:07
DX: K08.89 Other specified disorders of teeth and supporting structures (principal); F17.210 Nicotine dependence, cigarettes, uncomplicated
CPT/HCPCS: 96372; 99283; J1885